=== PATIENT | male | born 1970 | race Hispanic/Latino ===

== ENCOUNTER 2018-09-25 10:39 | Emergency (ER) | payer OTHER ==
--- OUTSIDE RECORDS SUMMARY | 2018-09-25 10:42 | XMS REPORT | Continuity of Care Document ---
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 coated Substitution [facility] Allowed, ECTAB [place] 10/325 oral 1-2 tab, PO, PO Active [facility] tablet Q4-6H, PRN, [address] [facility] tab, Pain, [facility] Substitution Allowed, Maintenance gabapentin 300 mg 300 mg, 1 cap, PO Active [facility] oral capsule PO, Bedtime, [address] [facility] cap, Substitution [facility] Allowed, CAP celecoxib 200 mg 200 mg, 1 cap, PO Active [facility] oral capsule PO, BID, 84 cap, 2012 [facility] Allowed, CAP Bactroban 1 appl, Route: NASAL No [facility] NASAL, Q12H, Drug Longer [address] [facility] form: OINT, Start [facility] date: 06/10/13 9:00:00, Duration: 5 day, Stop date: 06/14/13 21:00:00 Celebrex 400 mg, 2 cap, PO No [facility] Route: PO, Drug Longer [address] [facility] form: CAP, Daily, Active [facility] Dosing Weight 107.727, kg, Start date: 06/10/13 9:00:00, Duration: 30 day, Stop date: 07/09/13 9:00:00 enoxaparin 40 mg, 0.4 mL, SUB-Q No [facility] Route: SUB-Q, Longer [address] [facility] Drug form: INJ, [facility] Q24H, Dosing Weight 107.727, kg, Start date: 06/10/13 9:00:00, Duration: 30 day, Stop date: 07/09/13 9:00:00 vancomycin (SCIP) 1 gm, 200 mL, IVPB No [facility] Route: IVPB, Drug [address] [facility] form: INJ, Q12H, [facility] Dosing Weight 107.727, kg, Start date: 06/09/13 22:00:00, Duration: 1 doses or times, Stop date: 06/09/13 22:00:00, Pharmacy to adjust dose for renal functionPharmacy to adjust dose for renal function gabapentin 300 mg 300 mg, 1 cap, PO No [facility] oral capsule Route: PO, Drug [facility] [address] [facility] form: CAP, [facility] Bedtime, Dosing Weight 107.727, kg, Start date: 06/09/13 21:00:00, Duration: 30 day, Stop date: 07/08/13 21:00:00 cefazolin (SCIP) 1 gm, Route: IVPB No [facility] + Sodium Chloride IVPB, Q8H, Dosing [facility] [address] [facility] 0.9% IV 100 mL Weight 107.727, [facility] kg, Start date: 06/09/13 18:00:00, Duration: 1 doses or times, Stop date: 06/09/13 18:00:00 Pepcid 20 mg, 1 tab, PO No [facility] Route: PO, Drug [address] [facility] form: TAB, BID, [facility] Dosing Weight 107.727, kg, Start date: 06/09/13 17:00:00, Duration: 30 day, Stop date: 07/09/13 9:00:00 Reglan 10 mg oral 10 mg, 1 tab, PO No [facility] tablet Route: PO, Drug [address] [facility] form: TAB, BID, [facility] Dosing Weight 107.727, kg, Start date: 06/09/13 17:00:00, Duration: 30 day, Stop date: 07/09/13 9:00:00 pneumococcal 0.5 ml, Route: IM No SYSTEM 23-valent vaccine IM, Drug Form: [facility] [address] [facility] INJ, ONCALL, [facility] Start date: 06/09/13 13:52:54, Stop date: 07/09/13 13:47:54 ondansetron 4 mg, 2 mL, IVP No [place] Route: IVP, Drug [address] [facility] form: INJ, ONCE, [facility] Dosing Weight 107.727, kg, PRN Nausea & Vomiting, Start date: 06/09/13 9:45:00, Duration: 1 doses or times, Stop date: Limited # of times naloxone 0.1 mg, 0.25 mL, [facility], Drug [address] [facility] form: INJ, Q2MIN, [facility] Dosing Weight 107.727, kg, PRN Narcotic Reversal, Start date: 06/09/13 9:45:00, Duration: 8 doses or times, Stop date: Limited # of times nalbuphine 2 mg, 0.2 mL, IVP No [place] Route: IVP, Drug [address] [facility] form: INJ, Q2H, [facility] Dosing Weight 107.727, kg, PRN Itching, Start date: 06/09/13 9:45:00, Duration: 5 doses or times, Stop date: Limited # of times ondansetron 4 mg, 2 mL, IVP No [facility] Route: IVP, Drug [address] [facility] form: INJ, ONCE, [facility] Dosing Weight 107.727, kg, PRN Nausea & Vomiting, Start date: 06/09/13 9:44:00 enalapril 0.625 mg, 0.5 mL, IVP No [facility] Route: IVP, Drug [address] [facility] form: INJ, Q5Min, [facility] Dosing Weight 107.727, kg, PRN Elevated BP, Start date: 06/09/13 9:44:00, Duration: 4 doses or times, Stop date: Limited # of times hydrALAZINE 5 mg, 0.25 mL, IVP No [facility] Route: IVP, Drug [address] [facility] form: INJ, Q5Min, [facility] Dosing Weight 107.727, kg, PRN Elevated BP, Start date: 06/09/13 9:44:00, Duration: 4 doses or times, Stop date: Limited # of times acetaminophen 10 1,000 mg, 100 mL, IV No [place] mg/mL intravenous Route: IV, Drug [facility] [address] [facility] solution form: INJ, ONCE, [facility] Dosing Weight 107.727, kg, PRN Pain Score 4-6, Start date: 06/09/13 9:44:00, Duration: 1 doses or times, Stop date: Limited # of times, Infuse over 15 minutes (for patient weight 50 kg or greater)Infuse over 15 minutes (for patient weight 50 kg or greater) ephedrine 5 mg, 0.1 mL, IVP No [place] Route: IVP, Drug [facility] [address] [facility] form: INJ, Q5Min, [facility] Dosing Weight 107.727, kg, PRN Low Blood Pressure, Start date: 06/09/13 9:44:00, Duration: 30 day, Stop date: 07/09/13 9:43:00 naloxone 0.04 mg, 0.1 mL, IVP No [place] Route: IVP, Drug [facility] [address] [facility] form: INJ, Q2MIN, [facility] Dosing Weight 107.727, kg, PRN Narcotic Reversal, Start date: 06/09/13 9:44:00, Duration: 8 doses or times, Stop date: Limited # of times flumazenil 0.2 mg, 2 mL, IVP No [place] Route: IVP, Drug [facility] [address] [facility] form: INJ, PRN, [facility] Dosing Weight 107.727, kg, PRN Benzodiazepine Reversal, Initial dose, Start date: 06/09/13 9:44:00, Duration: 30 day, Stop date: 07/09/13 9:43:00 Lactated Ringers 1,000 mL, Rate: IV No [place] Injection IV 50 ml/hr, Infuse [facility] [address] [facility] 1,000 mL over: 20 hr, [facility] Route: IV, Dosing Weight 107.727 kg, Total Volume: 1,000, Start date: 06/09/13 9:44:00, Duration: 30 day, Stop date: 07/09/13 9:43:00 hydromorphone 0.5 mg, 0.25 mL, IVP No [place] Route: IVP, Drug [address] [facility] form: INJ, Q5Min, [facility] Dosing Weight 107.727, kg, PRN Pain Score 7-10, Start date: 06/09/13 9:44:00, Duration: 5 doses or times, Stop date: Limited # of times morphine Sulfate 2 mg, 0.2 mL, IVP No [facility] Route: IVP, Drug [address] [facility] form: INJ, Q5Min, [facility] Dosing Weight 107.727, kg, PRN Pain Score 4-6, Start date: 06/09/13 9:44:00, Duration: 5 doses or times, Stop date: Limited # of times vancomycin (SCIP) 1 gm, 200 mL, IVPB [facility] Route: IVPB, Drug [address] [facility] form: INJ, Q12H, [facility] Dosing Weight 107.727, kg, Start date: 06/09/13 9:00:00, Duration: 1 doses or times, Stop date: 06/09/13 9:00:00, Pharmacy to adjust dose for renal functionPharmacy to adjust dose for renal function cefazolin (SCIP) 1 gm, Route: IVPB No [facility] + Sodium Chloride IVPB, Q8H, Dosing [address] [facility] 0.9% IV 100 mL Weight 107.727, [facility] kg, Start date: 06/09/13 8:00:00, Duration: 1 doses or times, Stop date: 06/09/13 8:00:00 Lactated Ringers 1,000 mL, Rate: IV No [facility] Injection IV 25 ml/hr, Infuse [facility] [address] [facility] 1,000 mL over: 40 hr, [facility] Route: IV, Dosing Weight 107.727 kg, Total Volume: 1,000, Start date: 06/09/13 7:54:00, Duration: 30 day, Stop date: 07/09/13 7:53:00 enoxaparin 40 mg, Route: SUB-Q No [facility] SUB-Q, Drug form: [facility] [address] [facility] INJ, [id number], [facility] Dosing Weight 107.727, kg, Start date: 06/09/13 7:00:00, Duration: 30 day, Stop date: 07/08/13 7:00:00 acetaminophen-hyd 1 tab, Route: PO, PO No rocodone 325 mg-5 Drug Form: TAB, [facility] Dosing Weight [facility] 107.727, kg, Q4H, PRN Pain Score 1-3, Start date: 06/09/13 6:47:00, Duration: 30 day, Stop date: 07/09/13 6:46:00 tramadol 50 mg, 1 tab, PO No Route: PO, Drug [address] [facility] form: TAB, Q6H, [facility] Dosing Weight 107.727, kg, PRN Pain Score 1-3, Start date: 06/09/13 6:47:00, Duration: 30 day, Stop date: 07/09/13 6:46:00 morphine Sulfate 2 mg, 1 mL, IVP No Route: IVP, Drug [address] [facility] form: INJ, Q3H, [facility] Dosing Weight 107.727, kg, PRN Pain Score 6-10, Start date: 06/09/13 6:47:00, Duration: 30 day, Stop date: 07/09/13 6:46:00 ketorolac 30 mg, 1 mL, IVP No Route: IVP, Drug [address] [facility] form: INJ, Q6H, [facility] Dosing Weight 107.727, kg, PRN Breakthrough Pain, Start date: 06/09/13 6:47:00, Duration: 4 day, Stop date: 06/13/13 6:46:00 ondansetron 4 mg, 2 mL, IVP No Route: IVP, Drug [address] [facility] form: INJ, Q8H, [facility] Dosing Weight 107.727, kg, PRN Nausea & Vomiting, Start date: 06/09/13 6:47:00, Duration: 30 day, Stop date: 07/09/13 6:46:00 promethazine 12.5 mg, 0.5 mL, IM No Route: IM, Drug [address] [facility] form: INJ, Q4H, [facility] Dosing Weight 107.727, kg, PRN Nausea & Vomiting, Start date: 06/09/13 6:47:00, Duration: 30 day, Stop date: 07/09/13 6:46:00 zolpidem 10 mg, 2 tab, PO No Route: PO, Drug Longer [address] [facility] form: TAB, [facility] Bedtime, Dosing Weight 107.727, kg, PRN Insomnia, Start date: 06/09/13 6:47:00, Duration: 30 day, Stop date: 07/09/13 6:46:00 docusate 100 mg, 1 cap, PO No Route: PO, Drug Longer [address] [facility] form: CAP, BID, [facility] Dosing Weight 107.727, kg, PRN Constipation, Start date: 06/09/13 6:47:00, Duration: 30 day, Stop date: 07/09/13 6:46:00 Milk of Magnesia 30 ml, Route: PO, PO No Drug Form: SUSP, Longer [address] [facility] Dosing Weight [facility] 107.727, kg, BID, PRN Constipation, Start date: 06/09/13 6:47:00, Duration: 30 day, Stop date: 07/09/13 6:46:00 Fleet Enema 230 mL, Route: WV No WV, Drug Form: [facility] [address] [facility] JUAN, Dosing [facility] Weight 107.727, kg, [id number], PRN as needed for constipation, Start date: 06/09/13 6:47:00, Duration: 30 day, Stop date: 07/09/13 6:46:00 Lactated Ringers 1,000 mL, Rate: IV No IV 1,000 mL 125 ml/hr, Infuse [facility] [address] [facility] over: 8 hr, [facility] Route: IV, Dosing Weight 107.727 kg, Total Volume: 1,000, Start date: 06/09/13 6:47:00, Duration: 30 day, Stop date: 07/09/13 6:46:00 diphenhydrAMINE 25 mg, 1 cap, PO No Route: PO, Drug [address] [facility] form: CAP, Q6H, [facility] Dosing Weight 107.727, kg, PRN Itching, Start date: 06/09/13 6:47:00, Duration: 30 day, Stop date: 07/09/13 6:46:00 Zofran 4 mg, 2 mL, IVP No Route: IVP, Drug [address] [facility] form: INJ, PRE [facility] OP, Start date: 06/09/13 6:30:00, Stop date: 06/09/13 21:00:00 Reglan 10 mg, 1 tab, PO No [facility] Route: PO, Drug [address] [facility] form: TAB, PRE [facility] OP, Start date: 06/09/13 6:30:00, Stop date: 06/09/13 21:00:00 Pepcid 20 mg, 1 tab, PO No Route: PO, Drug [address] [facility] form: TAB, PRE [facility] OP, Start date: 06/09/13 6:30:00, Stop date: 06/09/13 21:00:00 cefazolin 2 gm, 100 mL, IVPB No [facility] Route: IVPB, Drug [address] [facility] form: INJ, [facility] OP, Start date: 06/09/13 6:30:00, Stop date: 06/09/13 21:00:00 vancomycin 2 gm, 500 mL, IVPB No [facility] Route: IVPB, Drug [address] [facility] form: SOLN, [facility] OP, Start date: 06/09/13 6:30:00, Stop date: 06/09/13 21:00:00 Celebrex 200 mg 200 mg, 1 cap, PO No oral capsule PO, Daily, 90 Longer [address] [facility] cap, Substitution [facility] Allowed, CAP Tylenol Arthritis 1 tab, PO, Q4H, PO No Caplet 650 mg PRN, 40 tab, for Longer [address] [facility] oral tablet pain, [facility] Substitution Allowed, Maintenance, TAB Allergies, Adverse Reactions, Alerts Substance Category Reaction Severity Reaction Status Date Comments Source type Reported Immunizations Immunization Date Given Site Status Last Comments Source Updated pneumococcal 06/09/2013 completed [facility] 23-valent vaccine [facility] Results Order Name Results Value Reference Date Interpretation Comments Source Range CHEMISTRY CO2 26 meq/L 24 - 32 06/10 Normal [facility] CHEMISTRY Calcium Lvl 8.4 mg/dL 8.5 - 10.5 06/10 LOW [facility] CHEMISTRY Potassium 4.3 meq/L 3.5 - 5.1 06/10 Normal MH Lvl [facility] CHEMISTRY Sodium Lvl 137 meq/L 135 - 145 06/10 Normal [facility] CHEMISTRY Chloride Lvl 102 meq/L 95 - 109 06/10 Normal [facility] CHEMISTRY Creatinine 1.1 mg/dL 0.5 - 1.4 06/10 Normal MH Lvl [facility] CHEMISTRY BUN 11 mg/dL 7 - 22 06/10 Normal [facility] CHEMISTRY Glucose Lvl 110 mg/dL 70 - 99 06/10 HI 4Interpretive Data: Adult reference range values reflect the clinical guidelines of the [place] [employer]. [facility] CHEMISTRY eGFR 83 06/10 NA 2Result Comment: The eGFR is calculated using the CKD-EPI formula. In most young, healthy individuals the eGFR will be > 90 mL/min/1.73m2. The eGFR declines with age. An eGFR of 60-89 may be normal in mL/min/1.7 some populations, particularly the elderly, for whom the CKD-EPI formula has not been extensively validated. Use of the eGFR is not recommended in the following populations: [address] Individuals with unstable creatinine concentrations, including patients and those with serious co-morbid conditions. Patients with extremes in muscle mass or diet. The data above are obtained from the National Kidney Disease Education Program (NKDEP) which additionally recommends that when the eGFR is used in patients with extremes of body mass index for purposes of drug dosing, the eGFR should be multiplied by the estimated BMI. CHEMISTRY AGAP 13.3 meq/L 10.0 - 06/10 Normal MH 20.0 [facility] HEMATOLOGY Hgb 11.9 g/dL 14.0 - 06/10 LOW MH 18.0 [facility] HEMATOLOGY Hct 36.7 % 42.0 - 06/10 LOW MH 54.0 [facility] BLOOD BANK ABO/Rh O POS 06/09 Unknown RESULTS [facility] BLOOD BANK Antibody Negative 06/09 Normal RESULTS Scr [facility] (06/09/2013 08:15:00) [facility] Pelvis AP Pelvis AP EXAM: Pelvis AP 06/09 - - [facility] HISTORY: Arthritis Read by: Jae Brenner Dictated Date/time: 06/09/13 13:48 Electronically Signed by: Jae Brenner MD 06/09/13 13:48 FINAL REPORT COMPARISON: Earlier x-ray on 06/09/2013 IMPRESSION: The left hip prosthesis is in good position without evidence of hardware complication. No fracture or dislocation. The right hip prosthesis is also in good position. Pelvis AP Pelvis AP EXAM: Pelvis AP 06/09 - [facility] HISTORY: intra op Read by: Jae Brenner Dictated Date/time: 06/09/13 13:44 Electronically Signed by: Jae Brenner MD 06/09/13 13:48 FINAL REPORT COMPARISON: None. IMPRESSION: The temporary left hip prosthesis is in good position without evidence of hardware complication. The right hip prosthesis is also in good position. BACTERIAL - MRSA by PCR Negative 05/30 Normal 1Interpretive Data: Interpretive Data: The [employer] MRSA assay is a qualitative test for the direct detection of nasal colonization with methicillin-resistant Staphylococcus aureus (MRSA) to aid in the prevention and control of MRSA infections in healthcare settings. A positive result does not indicate an infection or require treatment. A negative result does not exclude colonization or infection. [facility] (05/30/2013 16:12:00) [facility] The polymerase chain reaction (PCR) assay detects a proprietary sequence indicative of the integration of the SCCmec cassette into the Staphylococcus aureus chromosome, indicating the presence of MRSA D NA. The assay utilizes FDA cleared IVD reagents. Performance characteristics have been verified by the [facility] within the [facility]. The [facility] Labor atory is authorized under the Clinical Laboratory Improvement Amendment of 1988 (CLIA-88) to perform high complexity testing. URINALYSIS UA <=1.0 0.1 - 1.0 05/30 [facility] Urobilinogen mg/dL [facility]
*NA*< City br/>(05/30 16:12:00) <sup> </sup> URINALYSIS UA Bili Negative Negative 05/[address] [facility] *NA* [facility] (05/30/2013 16:12:00) URINALYSIS UA Ketones Negative mg/dL Negative 05/[address] [facility] *NA* [facility] (05/30/2013 16:12:00) URINALYSIS UA Protein Negative mg/dL Negative 05/[address] [facility] (05/30/2013 16:12:00) [facility] URINALYSIS UA Spec Grav 1.015 <=1.030 05/30 Normal [facility] URINALYSIS UA pH 5.5 5.0 - 8.0 05/30 Normal [facility] URINALYSIS UA Turbidity Clear Clear 05/[address] [facility] (05/30/2013 16:12:00) [facility] URINALYSIS UA Glucose Negative mg/dL Negative 05/30 [facility] *NA* [facility] (05/30/2013 16:12:00) URINALYSIS UA Color Yellow Yellow 05/30 [facility] *NA* [facility] (05/30/2013 16:12:00) URINALYSIS UA WBC null 0 - 5 05/30 Normal [facility] URINALYSIS UA Mucus Few /LPF None Seen 05/30 [facility] *NA* [facility] (05/30/2013 16:12:00) URINALYSIS Micro? Not Indicated 05/30 [facility] *NA* [facility] (05/30/2013 16:12:00) URINALYSIS UA Leuk Est Negative Negative 05/[address] [facility] (05/30/2013 16:12:00) [facility] URINALYSIS UA Blood Negative Negative 05/[address] [facility] (05/30/2013 16:12:00) [facility] URINALYSIS UA Nitrite Negative Negative 05/[address] [facility] (05/30/2013 16:12:00) [facility] CHEMISTRY Total 8.4 g/dL 6.4 - 8.4 05/30 Normal [facility] CHEMISTRY AST 21 unit/L 0 - 37 05/30 Normal [facility] CHEMISTRY Bili Total 0.9 mg/dL 0.2 - 1.3 05/30 Normal [facility] CHEMISTRY Alk Phos 113 unit/L 39 - 136 05/30 Normal [facility] CHEMISTRY ALT 39 unit/L 0 - 65 05/30 Normal [facility] CHEMISTRY eGFR 106 05/30 NA 3Result Comment: The eGFR is calculated using the CKD-EPI formula. In most young, healthy individuals the eGFR will be > 90 mL/min/1.73m2. The eGFR declines with age. An eGFR of 60-89 may be normal in mL/min/1.7 some populations, particularly the elderly, for whom the CKD-EPI formula has not been extensively validated. Use of the eGFR is not recommended in the following populations: [address] Individuals with unstable creatinine concentrations, including patients and those with serious co-morbid conditions. Patients with extremes in muscle mass or diet. The data above are obtained from the National Kidney Disease Education Program (NKDEP) which additionally recommends that when the eGFR is used in patients with extremes of body mass index for purposes of drug dosing, the eGFR should be multiplied by the estimated BMI. CHEMISTRY Calcium Lvl 9.2 mg/dL 8.5 - 10.5 05/30 Normal [facility] CHEMISTRY CO2 26 meq/L 24 - 32 05/30 Normal [facility] CHEMISTRY Albumin Lvl 4.1 g/dL 3.5 - 5.0 05/30 Normal [facility] CHEMISTRY Chloride Lvl 104 meq/L 95 - 109 05/30 Normal [facility] CHEMISTRY Glucose Lvl 87 mg/dL 70 - 99 05/30 Normal 5Interpretive Data: Adult reference range values reflect the clinical guidelines of the [place] [employer]. [facility] CHEMISTRY Potassium 3.7 meq/L 3.5 - 5.1 05/30 Normal [facility] CHEMISTRY Sodium Lvl 139 meq/L 135 - 145 05/30 Normal [facility] CHEMISTRY Creatinine 0.9 mg/dL 0.5 - 1.4 05/30 Normal Lvl [facility] CHEMISTRY BUN 11 mg/dL 7 - 22 05/30 Normal [facility] CHEMISTRY A/G Ratio 1.0 0.7 - 1.6 05/30 Normal [facility] CHEMISTRY Globulin 4.3 g/dL 2.0 - 4.0 05/30 HI [facility] CHEMISTRY B/C Ratio 12 6 - 25 05/30 Normal [facility] CHEMISTRY AGAP 12.7 meq/L 10.0 - 07 Normal 20.0 /2012 [facility] HEMATOLOGY PTT 32.4 s 22.9 - 07/ Normal 7Interpretive 35.8 /2013 Data: Heparin [facility] Range: 57 - 92 Seconds HEMATOLOGY PT 12.4 s 12.0 - 07 Normal 14.7 /[facility] INR 0.90 0.85 - 07/ Normal 6Interpretive Data: RECOMMENDED RANGES FOR PROTIME INR: 1.17 2.0-3.0 for most medical and surgical thromboembolic states. [facility] 2.5-3.5 for artificial heart valves and recurrent embolism. [facility] INR SHOULD BE USED ONLY FOR PATIENTS ON STABLE ANTICOAGULANT THERAPY. HEMATOLOGY Platelet 327 K/CMM 133 - 450 07/ Normal /2012 [facility] HEMATOLOGY MCHC 32.4 g/dL 32.0 - 07/ Normal 36.0 /2012 [facility] HEMATOLOGY RDW 14.2 % 11.5 - 07/ Normal 14.5 /2012 [facility] MCH 29.7 pg 27.0 - 07/ Normal 31.0 /2012 [facility] Hct 45.0 % 42.0 - 07/ Normal 54.0 /2012 [facility] HEMATOLOGY MCV 91.7 fL 80.0 - 07 Normal 94.0 /2012 [facility] HEMATOLOGY Hgb 14.6 g/dL 14.0 - 07 Normal 18.0 /2012 [facility] HEMATOLOGY RBC 4.91 M/CMM 4.70 - 07/ Normal MH 6.10 /2012 [facility] HEMATOLOGY WBC 9.9 K/CMM 3.7 - 10.4 07/ Normal /2012 [facility] HEMATOLOGY MPV 10.7 fL 7.4 - 10.4 07/ HI /2012 [facility] HEMATOLOGY Basophils 0.3 % 0.0 - 1.0 07/ Normal /2012 [facility] HEMATOLOGY Segs-Bands # 7.0 K/CMM 1.5 - 8.1 07/ Normal /2012 [facility] HEMATOLOGY Eosinophils 3.0 % 0.0 - 4.0 07/ Normal /2012 [facility] HEMATOLOGY Segs 71.2 % 45.0 - 07/ Normal 75.0 /2012 [facility] HEMATOLOGY Lymphocytes 21.0 % 20.0 - 07/ Normal 40.0 /2012 [facility] HEMATOLOGY Monocytes 4.5 % 2.0 - 12.0 07/ Normal /2012 [facility] HEMATOLOGY Lymphocytes 2.1 K/CMM 1.0 - 5.5 07/ Normal # /2012 [facility] HEMATOLOGY Basophils # 0.0 K/CMM 0.0 - 0.2 07/ Normal [facility] HEMATOLOGY Eosinophils 0.3 K/CMM 0.0 - 0.5 05/30 Normal [facility] [facility] HEMATOLOGY Monocytes # 0.4 K/CMM 0.0 - 0.8 05/30 Normal [facility] IMMUNOLOGY Hep C Ab Negative Negative 05/30 NA [facility]* [facility] (05/30/2013 16:11:00) IMMUNOLOGY HIV 1/2 Ab Negative Negative 05/[address] [facility] *NA* [facility] (05/30/2013 16:11:00) Chest 2 Chest 2 Chest 2 views, 05/30/201305/30 - views views /2012 - [facility] Clinical: Cough Read by: Hugh Ram Dictated Date/time: 05/30/13 17:49 Electronically Signed by: Hugh Ram MD 05/30/13 17:49 FINAL REPORT Comparison: No previous exam. The heart, mediastinum, hilar regions and pulmonary vasculature appear within normal limits. The lungs are free of active disease. Remote right clavicular fracture is present. The bony thorax is intact. Impression: No evidence to suggest active cardiopulmonary disease. Remote right clavicular fracture. Vital Signs Vital Sign Value Date Comments Source Diastolic (mm Hg) 72 06/10/2013 [facility] Systolic (mm Hg) 124 06/10/2013 [facility] Heart Rate 99 06/10/2013 [facility] Heart Rate 106 06/10/2013 [facility] Temperature Oral (F) 98.8 F 06/10/2013 [facility] Diastolic (mm Hg) 77 06/10/2013 [facility] Systolic (mm Hg) 123 06/10/2013 [facility] Respitory Rate 16 06/10/2013 [facility] Systolic (mm Hg) 125 06/10/2013 [facility] Diastolic (mm Hg) 72 06/10/2013 [facility] Respitory Rate 18 06/10/2013 [facility] Heart Rate 98 06/10/2013 [facility] Temperature Oral (F) 99.5 F 06/10/2013 [facility] Temperature Oral (F) 98.7 F 06/10/2013 [facility] Respitory Rate 18 06/10/2013 [facility] Height 167.64 cm 05/30/2013 [facility] Weight 107.727 05/30/2013 [facility] Encounters Location Location Encounter Encounter Reason Attending ADM DC Status Source Details Type Number For Provider Date Date Visit Inpatient [id number] LEFT MAI 06/09 06/10 Active [facility] HIP FREEDHAND /2012 [facility] PAIN,71 [facility] 9.45,AV ASCULAR NECROSI S,733.4 2,16178 Procedures Procedure Code Date Perfomer Comments Source Hip replacement 06/09/2013 1left hip [facility] <sup>1</sup> [facility] THR - Total hip [id number] 11/30/2012 [facility]
--- OUTSIDE RECORDS SUMMARY | 2018-09-25 10:43 | XMS REPORT | CCD ---
:[address] [facility] Care Team Providers Name Role Phone Terell Alberto Referring Provider Allergies, Adverse Reactions, Alerts Substance Reaction Status NKDA Active Problem List Condition Effective Dates Status Asthma Resolved AVN - Avascular necrosis of bone Active Medications Medication Instructions Start Date End Date Status Bactroban 1 appl, Route: NASAL, 06/10/2013 06/10/2013 Discontinued Q12H, Drug form: OINT, Start date: 06/10/13 9:00:00, Duration: 5 day, Stop date: 06/14/13 21:00:00 Lactated Ringers Injection 1,000 mL, Rate: 25 06/09/2013 06/09/2013 Discontinued IV 1,000 mL ml/hr, Infuse over: 40 hr, Route: IV, Dosing Weight 107.727 kg, Total Volume: 1,000, Start date: 06/09/13 7:54:00, Duration: 30 day, Stop date: 07/09/13 7:53:00 Zofran 4 mg, 2 mL, Route: IVP, 06/09/2013 06/09/2013 Completed Drug form: INJ, PRE OP, Start date: 06/09/13 6:30:00, Stop date: 06/09/13 21:00:00 Reglan 10 mg, 1 tab, Route: PO, 06/09/2013 06/09/2013 Completed Drug form: TAB, PRE OP, Start date: 06/09/13 6:30:00, Stop date: 06/09/13 21:00:00 aspirin 325 mg tablet, 325 mg, 1 tab, PO, Q12H, 06/10/2013 Ordered enteric coated 90 tab, Substitution Allowed, ECTAB [place] 10/325 oral tablet 1-2 tab, PO, Q4-6H, PRN, 06/10/2013 06/15/2013 Ordered 30 tab, Pain, Substitution Allowed, Maintenance gabapentin 300 mg oral 300 mg, 1 cap, PO, 06/10/2013 Ordered capsule Bedtime, 21 cap, Substitution Allowed, CAP Celebrex 200 mg oral 200 mg, 1 cap, PO, 05/30/2013 06/10/2013 Discontinued capsule Daily, 90 cap, Substitution Allowed, CAP Tylenol Arthritis Caplet 1 tab, PO, Q4H, PRN, 40 05/30/2013 06/10/2013 Discontinued 650 mg oral tablet tab, for pain, Substitution Allowed, Maintenance, TAB Pepcid 20 mg, 1 tab, Route: PO, 06/09/2013 06/09/2013 Completed Drug form: TAB, PRE OP, Start date: 06/09/13 6:30:00, Stop date: 06/09/13 21:00:00 cefazolin 2 gm, 100 mL, Route: 06/09/2013 06/09/2013 Completed IVPB, Drug form: INJ, PRE OP, Start date: 06/09/13 6:30:00, Stop date: 06/09/13 21:00:00 celecoxib 200 mg oral 200 mg, 1 cap, PO, BID, 06/10/2013 Ordered capsule 84 cap, Substitution Allowed, CAP pneumococcal 23-valent 0.5 ml, Route: IM, Drug 06/09/2013 06/09/2013 Completed vaccine Form: INJ, ONCALL, Start date: 06/09/13 13:52:54, Stop date: 07/09/13 13:47:54 ondansetron 4 mg, 2 mL, Route: IVP, 06/09/2013 06/09/2013 Discontinued Drug form: INJ, ONCE, Dosing Weight 107.727, kg, PRN Nausea & Vomiting, Start date: 06/09/13 9:44:00 enalapril 0.625 mg, 0.5 mL, Route: 06/09/2013 06/09/2013 Discontinued IVP, Drug form: INJ, Q5Min, Dosing Weight 107.727, kg, PRN Elevated BP, Start date: 06/09/13 9:44:00, Duration: 4 doses or times, Stop date: Limited # of times hydrALAZINE 5 mg, 0.25 mL, Route: 06/09/2013 06/09/2013 Discontinued IVP, Drug form: INJ, Q5Min, Dosing Weight 107.727, kg, PRN Elevated BP, Start date: 06/09/13 9:44:00, Duration: 4 doses or times, Stop date: Limited # of times acetaminophen 10 mg/mL 1,000 mg, 100 mL, Route: IV, Drug form: INJ, ONCE, Dosing Weight 107.727, kg, PRN Pain Score 4-6, Start date: 06/09/13 9:44:00, Duration: 1 doses or times, Stop date: Limited # of times, Infuse over 15 minutes (for patient weight 50 kg or greater) 06/09/2013 06/09/2013 Discontinued intravenous solution Infuse over 15 minutes (for patient weight 50 kg or greater) ephedrine 5 mg, 0.1 mL, Route: 06/09/2013 06/09/2013 Discontinued IVP, Drug form: INJ, Q5Min, Dosing Weight 107.727, kg, PRN Low Blood Pressure, Start date: 06/09/13 9:44:00, Duration: 30 day, Stop date: 07/09/13 9:43:00 naloxone 0.04 mg, 0.1 mL, Route: 06/09/2013 06/09/2013 Discontinued IVP, Drug form: INJ, Q2MIN, Dosing Weight 107.727, kg, PRN Narcotic Reversal, Start date: 06/09/13 9:44:00, Duration: 8 doses or times, Stop date: Limited # of times flumazenil 0.2 mg, 2 mL, Route: 06/09/2013 06/09/2013 Discontinued IVP, Drug form: INJ, PRN, Dosing Weight 107.727, kg, PRN Benzodiazepine Reversal, Initial dose, Start date: 06/09/13 9:44:00, Duration: 30 day, Stop date: 07/09/13 9:43:00 Lactated Ringers Injection 1,000 mL, Rate: 50 06/09/2013 06/09/2013 Discontinued IV 1,000 mL ml/hr, Infuse over: 20 hr, Route: IV, Dosing Weight 107.727 kg, Total Volume: 1,000, Start date: 06/09/13 9:44:00, Duration: 30 day, Stop date: 07/09/13 9:43:00 hydromorphone 0.5 mg, 0.25 mL, Route: 06/09/2013 06/09/2013 Discontinued IVP, Drug form: INJ, Q5Min, Dosing Weight 107.727, kg, PRN Pain Score 7-10, Start date: 06/09/13 9:44:00, Duration: 5 doses or times, Stop date: Limited # of times morphine Sulfate 2 mg, 0.2 mL, Route: 06/09/2013 06/09/2013 Discontinued IVP, Drug form: INJ, Q5Min, Dosing Weight 107.727, kg, PRN Pain Score 4-6, Start date: 06/09/13 9:44:00, Duration: 5 doses or times, Stop date: Limited # of times ondansetron 4 mg, 2 mL, Route: IVP, 06/09/2013 06/10/2013 Discontinued Drug form: INJ, ONCE, Dosing Weight 107.727, kg, PRN Nausea & Vomiting, Start date: 06/09/13 9:45:00, Duration: 1 doses or times, Stop date: Limited # of times naloxone 0.1 mg, 0.25 mL, Route: 06/09/2013 06/10/2013 Discontinued IVP, Drug form: INJ, Q2MIN, Dosing Weight 107.727, kg, PRN Narcotic Reversal, Start date: 06/09/13 9:45:00, Duration: 8 doses or times, Stop date: Limited # of times nalbuphine 2 mg, 0.2 mL, Route: 06/09/2013 06/10/2013 Discontinued IVP, Drug form: INJ, Q2H, Dosing Weight 107.727, kg, PRN Itching, Start date: 06/09/13 9:45:00, Duration: 5 doses or times, Stop date: Limited # of times enoxaparin 40 mg, Route: SUB-Q, 06/09/2013 06/09/2013 Deleted Drug form: INJ, [id number], Dosing Weight 107.727, kg, Start date: 06/09/13 7:00:00, Duration: 30 day, Stop date: 07/08/13 7:00:00 Pepcid 20 mg, 1 tab, Route: PO, 06/09/2013 06/10/2013 Discontinued Drug form: TAB, BID, Dosing Weight 107.727, kg, Start date: 06/09/13 17:00:00, Duration: 30 day, Stop date: 07/09/13 9:00:00 Reglan 10 mg oral tablet 10 mg, 1 tab, Route: PO, 06/09/2013 06/10/2013 Discontinued Drug form: TAB, BID, Dosing Weight 107.727, kg, Start date: 06/09/13 17:00:00, Duration: 30 day, Stop date: 07/09/13 9:00:00 Celebrex 400 mg, 2 cap, Route: 06/10/2013 06/10/2013 Discontinued PO, Drug form: CAP, Daily, Dosing Weight 107.727, kg, Start date: 06/10/13 9:00:00, Duration: 30 day, Stop date: 07/09/13 9:00:00 gabapentin 300 mg oral 300 mg, 1 cap, Route: 06/09/2013 06/10/2013 Discontinued capsule PO, Drug form: CAP, Bedtime, Dosing Weight 107.727, kg, Start date: 06/09/13 21:00:00, Duration: 30 day, Stop date: 07/08/13 21:00:00 cefazolin (SCIP) + Sodium 1 gm, Route: IVPB, Q8H, 06/09/2013 06/09/2013 Deleted Chloride 0.9% IV 100 mL Dosing Weight 107.727, kg, Start date: 06/09/13 8:00:00, Duration: 1 doses or times, Stop date: 06/09/13 8:00:00 vancomycin (SCIP) 1 gm, 200 mL, Route: IVPB, Drug form: INJ, Q12H, Dosing Weight 107.727, kg, Start date: 06/09/13 9:00:00, Duration: 1 doses or times, Stop date: 06/09/13 9:00:00, Pharmacy to adjust dose for renal function 201206/09/2013 Deleted Pharmacy to adjust dose for renal function acetaminophen-hydrocodone 1 tab, Route: PO, Drug 06/09/2013 06/10/2013 Discontinued 325 mg-5 mg oral tablet Form: TAB, Dosing Weight 107.727, kg, Q4H, PRN Pain Score 1-3, Start date: 06/09/13 6:47:00, Duration: 30 day, Stop date: 07/09/13 6:46:00 acetaminophen-hydrocodone 2 tab, Route: PO, Drug 06/09/2013 06/10/2013 Discontinued 325 mg-5 mg oral tablet Form: TAB, Dosing Weight 107.727, kg, Q4H, PRN Pain Score 4-6, Start date: 06/09/13 6:47:00, Duration: 30 day, Stop date: 07/09/13 6:46:00 tramadol 50 mg, 1 tab, Route: PO, 06/09/2013 06/10/2013 Discontinued Drug form: TAB, Q6H, Dosing Weight 107.727, kg, PRN Pain Score 1-3, Start date: 06/09/13 6:47:00, Duration: 30 day, Stop date: 07/09/13 6:46:00 morphine Sulfate 2 mg, 1 mL, Route: IVP, 06/09/2013 06/10/2013 Discontinued Drug form: INJ, Q3H, Dosing Weight 107.727, kg, PRN Pain Score 6-10, Start date: 06/09/13 6:47:00, Duration: 30 day, Stop date: 07/09/13 6:46:00 ketorolac 30 mg, 1 mL, Route: IVP, 06/09/2013 06/10/2013 Discontinued Drug form: INJ, Q6H, Dosing Weight 107.727, kg, PRN Breakthrough Pain, Start date: 06/09/13 6:47:00, Duration: 4 day, Stop date: 06/13/13 6:46:00 ondansetron 4 mg, 2 mL, Route: IVP, 06/09/2013 06/10/2013 Discontinued Drug form: INJ, Q8H, Dosing Weight 107.727, kg, PRN Nausea & Vomiting, Start date: 06/09/13 6:47:00, Duration: 30 day, Stop date: 07/09/13 6:46:00 promethazine 12.5 mg, 0.5 mL, Route: 06/09/2013 06/10/2013 Discontinued IM, Drug form: INJ, Q4H, Dosing Weight 107.727, kg, PRN Nausea & Vomiting, Start date: 06/09/13 6:47:00, Duration: 30 day, Stop date: 07/09/13 6:46:00 zolpidem 10 mg, 2 tab, Route: PO, 06/09/2013 06/10/2013 Discontinued Drug form: TAB, Bedtime, Dosing Weight 107.727, kg, PRN Insomnia, Start date: 06/09/13 6:47:00, Duration: 30 day, Stop date: 07/09/13 6:46:00 docusate 100 mg, 1 cap, Route: 06/09/2013 06/10/2013 Discontinued PO, Drug form: CAP, BID, Dosing Weight 107.727, kg, PRN Constipation, Start date: 06/09/13 6:47:00, Duration: 30 day, Stop date: 07/09/13 6:46:00 Milk of Magnesia 30 ml, Route: PO, Drug 06/09/2013 06/10/2013 Discontinued Form: SUSP, Dosing Weight 107.727, kg, BID, PRN Constipation, Start date: 06/09/13 6:47:00, Duration: 30 day, Stop date: 07/09/13 6:46:00 Fleet Enema 230 mL, Route: UT, Drug 06/09/2013 06/10/2013 Discontinued Form: JUAN, Dosing Weight 107.727, kg, [id number], PRN as needed for constipation, Start date: 06/09/13 6:47:00, Duration: 30 day, Stop date: 07/09/13 6:46:00 Lactated Ringers IV 1,000 1,000 mL, Rate: 125 06/09/2013 06/10/2013 Discontinued mL ml/hr, Infuse over: 8 hr, Route: IV, Dosing Weight 107.727 kg, Total Volume: 1,000, Start date: 06/09/13 6:47:00, Duration: 30 day, Stop date: 07/09/13 6:46:00 enoxaparin 40 mg, 0.4 mL, Route: 06/10/2013 06/10/2013 Discontinued SUB-Q, Drug form: INJ, Q24H, Dosing Weight 107.727, kg, Start date: 06/10/13 9:00:00, Duration: 30 day, Stop date: 07/09/13 9:00:00 diphenhydrAMINE 25 mg, 1 cap, Route: PO, 06/09/2013 06/10/2013 Discontinued Drug form: CAP, Q6H, Dosing Weight 107.727, kg, PRN Itching, Start date: 06/09/13 6:47:00, Duration: 30 day, Stop date: 07/09/13 6:46:00 vancomycin (SCIP) 1 gm, 200 mL, Route: IVPB, Drug form: INJ, Q12H, Dosing Weight 107.727, kg, Start date: 06/09/13 22:00:00, Duration: 1 doses or times, Stop date: 06/09/13 22:00:00, Pharmacy to adjust dose for renal function 201206/09/2013 Completed Pharmacy to adjust dose for renal function cefazolin (SCIP) + Sodium 1 gm, Route: IVPB, Q8H, 06/09/2013 06/09/2013 Completed Chloride 0.9% IV 100 mL Dosing Weight 107.727, kg, Start date: 06/09/13 18:00:00, Duration: 1 doses or times, Stop date: 06/09/13 18:00:00 vancomycin 2 gm, 500 mL, Route: 06/09/2013 06/09/2013 Completed IVPB, Drug form: SOLN, PRE OP, Start date: 06/09/13 6:30:00, Stop date: 06/09/13 21:00:00 Immunizations Vaccine Date Status pneumococcal 23-valent vaccine 06/09/2013 Auth (Verified) Vital Signs Most recent to oldest 1 2 3 [Reference Range]: Height 167.64 cm (05/30/2013 16:09:00) Temperature Oral 98.8 DegF 99.5 DegF 98.7 DegF [96.4-99.1 DegF] (06/10/2013 08:00:00) *HI* (06/10/2013 00:00:00) (06/10/2013 03:59:00) Systolic Blood Pressure 124 mmHg 123 mmHg 125 mmHg [90-140 mmHg] (06/10/2013 12:00:00) (06/10/2013 08:00:00) (06/10/2013 03:59: 00) Diastolic Blood Pressure 72 mmHg 77 mmHg 72 mmHg [60-90 mmHg] (06/10/2013 12:00:00) (06/10/2013 08:00:00) (06/10/2013 03:59: 00) Respiratory Rate [14-20 16 BRMIN 18 BRMIN 18 BRMIN BRMIN] (06/10/2013 08:00:00) (06/10/2013 03:59:00) (06/10/2013 00:00:00) Peripheral Pulse Rate 99 bpm 106 bpm 98 bpm [60-100 bpm] (06/10/2013 12:00:00) *HI* (06/10/2013 03:59:00) (06/10/2013 08:00:00) Weight 107.727 kg (05/30/2013 16:09:00) Results BACTERIAL - SEROLOGY Most recent to oldest [Reference Range]: 1 2 MRSA by PCR Negative 1 (05/30/2013 16:12:00) 1Interpretive Data: Interpretive Data: The [employer] Light[employer] MRSA assay is a qualitative test for thedirect detection of nasal colonization with methicillin- resistant Staphylococcus aureus (MRSA) to aid in the prevention and control of MRSA infections in healthcare settings. A positive result does notindicate an infection or require treatment. A negative result does not exclude colonization or infection. The polymerase chain reaction (PCR) assay detects a proprietary sequence indicative of the integration of the SCCmec cassette into the Staphylococcus aureus chromosome, indicating the presence of MRSA DNA. The assay utilizes FDA cleared IVD reagents. Performance characteristics have been verified by the [facility] within the [facility]. The [facility] is authorized under the Clinical Laboratory Improvement Amendment of 1988 (CLIA-88) to performhigh complexity testing.URINALYSIS Most recent to oldest [Reference Range]: 1 2 UA Turbidity [Clear] Clear (05/30/2013 16:12:00) UA Color [Yellow] Yellow *NA* (05/30/2013 16:12:00) UA pH [5.0-8.0] 5.5 (05/30/2013 16:12:00) UA Spec Grav [<=1.030] 1.015 (05/30/2013 16:12:00) UA Glucose [Negative mg/dL] Negative mg/dL *NA* (05/30/2013 16:12:00) UA Blood [Negative] Negative (05/30/2013 16:12:00) UA Ketones [Negative mg/dL] Negative mg/dL *NA* (05/30/2013 16:12:00) UA Protein [Negative mg/dL] Negative mg/dL (05/30/2013 16:12:00) UA Urobilinogen [0.1-1.0 mg/dL] <=1.0 mg/dL *NA* (05/30/2013 16:12:00) UA Bili [Negative] Negative *NA* (05/30/2013 16:12:00) UA Leuk Est [Negative] Negative (05/30/2013 16:12:00) UA Nitrite [Negative] Negative (05/30/2013 16:12:00) UA WBC [0-5 /HPF] <1 /HPF (05/30/2013 16:12:00) UA Mucus [None Seen /LPF] Few /LPF *NA* (05/30/2013 16:12:00) Micro? Not Indicated *NA* (05/30/2013 16:12:00) BLOOD BANK RESULTS Most recent to oldest [Reference Range]: 1 2 ABO/Rh O POS *Unknown* (06/09/2013 08:15:00) Antibody Scrn Negative (06/09/2013 08:15:00) CHEMISTRY Most recent to oldest [Reference 1 2 Range]: Sodium Lvl [135-145 mEq/L] 137 mEq/L 139 mEq/L (06/10/2013 05:59:00) (05/30/2013 16:11:00) Potassium Lvl [3.5-5.1 mEq/L] 4.3 mEq/L 3.7 mEq/L (06/10/2013 05:59:00) (05/30/2013 16:11:00) Chloride Lvl [95-109 mEq/L] 102 mEq/L 104 mEq/L (06/10/2013 05:59:00) (05/30/2013 16:11:00) CO2 [24-32 mEq/L] 26 mEq/L 26 mEq/L (06/10/2013 05:59:00) (05/30/2013 16:11:00) AGAP [10.0-20.0 mEq/L] 13.3 mEq/L 12.7 mEq/L (06/10/2013 05:59:00) (05/30/2013 16:11:00) Creatinine Lvl [0.5-1.4 mg/dL] 1.1 mg/dL 0.9 mg/dL (06/10/2013 05:59:00) (05/30/2013 16:11:00) eGFR 83 mL/min/1.73m2 2 106 mL/min/1.73m2 3 *NA* *NA* (06/10/2013 05:59:00) (05/30/2013 16:11:00) BUN [7-22 mg/dL] 11 mg/dL 11 mg/dL (06/10/2013 05:59:00) (05/30/2013 16:11:00) B/C Ratio [6-25] 12 (05/30/2013 16:11:00) Glucose Lvl [70-99 mg/dL] 110 mg/dL 4 87 mg/dL 5 *HI* (05/30/2013 16:11:00) (06/10/2013 05:59:00) Total Protein [6.4-8.4 g/dL] 8.4 g/dL (05/30/2013 16:11:00) Albumin Lvl [3.5-5.0 g/dL] 4.1 g/dL (05/30/2013 16:11:00) Globulin [2.0-4.0 g/dL] 4.3 g/dL *HI* (05/30/2013 16:11:00) A/G Ratio [0.7-1.6] 1.0 (05/30/2013 16:11:00) Calcium Lvl [8.5-10.5 mg/dL] 8.4 mg/dL 9.2 mg/dL *LOW* (05/30/2013 16:11:00) (06/10/2013 05:59:00) ALT [0-65 unit/L] 39 unit/L (05/30/2013 16:11:00) AST [0-37 unit/L] 21 unit/L (05/30/2013 16:11:00) Alk Phos [39-136 unit/L] 113 unit/L (05/30/2013 16:11:00) Bili Total [0.2-1.3 mg/dL] 0.9 mg/dL (05/30/2013 16:11:00) 2Result Comment: The eGFR is calculated using the CKD-EPI formula. In most young , healthy individualsthe eGFR will be >90 mL/min/1.73m2. The eGFR declines with age. An eGFR of 60-89 may be normal in some populations, particularly the elderly, for whom the CKD-EPI formula has not been extensively validated. Use of the eGFR is not recommended in the following populations: Individuals with unstable creatinine concentrations, including patients and those with serious co-morbid conditions. Patients with extremes in muscle mass or diet. The data above are obtained from the National Kidney Disease Education Program ( NKDEP) which additionally recommends that when the eGFR is used in patients with extremes of body mass index for purposesof drug dosing, the eGFR should be multiplied by the estimated BMI.3Result Comment: The eGFR is calculated using the CKD-EPI formula. In most young, healthy individualsthe eGFR will be >90 mL/ min/1.73m2. The eGFR declines with age. An eGFR of 60-89 may be normal in some populations, particularly the elderly, for whom the CKD-EPI formula has not been extensively validated. Use of the eGFR is not recommended in the following populations: Individuals with unstable creatinine concentrations, including patients and those with serious co-morbid conditions. Patients with extremes in muscle mass or diet. The data above are obtained from the National Kidney Disease Education Program ( NKDEP) which additionally recommends that when the eGFR is used in patients with extremes of body mass index for purposesof drug dosing, the eGFR should be multiplied by the estimated BMI.4Interpretive Data: Adult reference range values reflect the clinical guidelines of the [place] [employer].5Interpretive Data: Adult reference range values reflect the clinical guidelines of the [place] [employer].HEMATOLOGY Most recent to oldest [Reference 1 2 Range]: WBC [3.7-10.4 K/CMM] 9.9 K/CMM (05/30/2013 16:11:00) RBC [4.70-6.10 M/CMM] 4.91 M/CMM (05/30/2013 16:11:00) Hgb [14.0-18.0 g/dL] 11.9 g/dL 14.6 g/dL *LOW* (05/30/2013 16:11:00) (06/10/2013 05:59:00) Hct [42.0-54.0 %] 36.7 % 45.0 % *LOW* (05/30/2013 16:11:00) (06/10/2013 05:59:00) MCV [80.0-94.0 fL] 91.7 fL (05/30/2013 16:11:00) MCH [27.0-31.0 pg] 29.7 pg (05/30/2013 16:11:00) MCHC [32.0-36.0 g/dL] 32.4 g/dL (05/30/2013 16:11:00) RDW [11.5-14.5 %] 14.2 % (05/30/2013 16:11:00) Platelet [133-450 K/CMM] 327 K/CMM (05/30/2013 16:11:00) MPV [7.4-10.4 fL] 10.7 fL *HI* (05/30/2013 16:11:00) Segs [45.0-75.0 %] 71.2 % (05/30/2013 16:11:00) Lymphocytes [20.0-40.0 %] 21.0 % (05/30/2013 16:11:00) Monocytes [2.0-12.0 %] 4.5 % (05/30/2013 16:11:00) Eosinophils [0.0-4.0 %] 3.0 % (05/30/2013 16:11:00) Basophils [0.0-1.0 %] 0.3 % (05/30/2013 16:11:00) Segs-Bands # [1.5-8.1 K/CMM] 7.0 K/CMM (05/30/2013 16:11:00) Lymphocytes # [1.0-5.5 K/CMM] 2.1 K/CMM (05/30/2013 16:11:00) Monocytes # [0.0-0.8 K/CMM] 0.4 K/CMM (05/30/2013 16:11:00) Eosinophils # [0.0-0.5 K/CMM] 0.3 K/CMM (05/30/2013 16:11:00) Basophils # [0.0-0.2 K/CMM] 0.0 K/CMM (05/30/2013 16:11:00) PT [12.0-14.7 seconds] 12.4 seconds (05/30/2013 16:11:00) INR [0.85-1.17] 0.90 6 (05/30/2013 16:11:00) PTT [22.9-35.8 seconds] 32.4 seconds 7 (05/30/2013 16:11:00) 6Interpretive Data: RECOMMENDED RANGES FOR PROTIME INR: 2.0-3.0 for most medical and surgical thromboembolic states. 2.5-3.5 for artificial heart valves and recurrent embolism. INR SHOULD BE USED ONLY FOR PATIENTS ON STABLE ANTICOAGULANT THERAPY.7Interpretive Data: Heparin Therapeutic Range: 57 - 92 SecondsIMMUNOLOGY Most recent to oldest [Reference Range]: 1 2 HIV 1/2 Ab [Negative] Negative *NA* (05/30/2013 16:11:00) Hep C Ab [Negative] Negative *NA* (05/30/2013 16:11:00) Procedures Procedures Date Related Diagnosis Hip replacement 1 06/09/2013 00:00:00 THR - Total hip replacement 2012 1left hip
--- NOTE | 2018-09-25 12:38 | ER ---
Nurse's Notes [facility] Name: Randal Hobbs Age: 47 yrs Sex: Male : 1970 Arrival Date: 09/25/2018 Time: 10:43 Bed Treatment Private MD: Dakota Russ H Diagnosis: Presentation: 09/25 11:26 Presenting complaint: Patient states: Left knee pain for 4 days, no known injury or aj trauma. Ambulated with use of a cane to triage. Transition of care: patient was not received from another setting of care. Onset of symptoms was September 21, 2018. Risk Assessment: Do you want to hurt yourself or someone else? Patient reports no desire to harm self or others. Initial Sepsis Screen: Does the patient meet any 2 criteria? No. Patient's initial sepsis screen is negative. Does the patient have a suspected source of infection? No. Patient's initial sepsis screen is negative. Care prior to arrival: None. 11:26 Method Of Arrival: Ambulatory 11:26 Acuity: BG 4 aj Triage Assessment: 11:28 General: Appears in no apparent distress. comfortable, Behavior is calm, cooperative, aj appropriate for age. Pain: Complains of pain in left knee. Neuro: Level of Consciousness is awake, alert, obeys commands, Oriented to person, place, time, situation, Appropriate for age. Respiratory: Airway is patent Respiratory effort is even, unlabored, Respiratory pattern is regular, symmetrical. Derm: Skin is intact, is healthy with good turgor, Skin is pink, warm \T\ dry. normal. Musculoskeletal: Reports pain in left knee. Historical: - Allergies: 11:28 No Known Allergies; aj - Home Meds: 11: None [Active]; aj - PMHx: 11:28 None; aj - PSHx: 11:28 hip replacement; Gastric Sleeve; Sinus; aj - Immunization history:: Adult Immunizations up to date. - Social history:: Smoking status: Patient/guardian denies using tobacco. - Ebola Screening: : Patient negative for fever greater than or equal to 101.5 degrees Fahrenheit, and additional compatible Ebola Virus Disease symptoms Patient denies exposure to infectious person Patient denies travel to an Ebola-affected area in the 21 days before illness onset No symptoms or risks identified at this time. Vital Signs: 11:28 BP 156 / 103; Pulse 82; Resp 20; Temp 98.3(O); Pulse Ox 98% on R/A; Weight 90.72 kg; aj Height 5 ft. 6 in. (167.64 cm); 11:28 Body Mass Index 32.28 (90.72 kg, 167.64 cm) aj ED Course: 10:43 Patient arrived in ED. mr 10:44 Dakota Russ DO is Private Physician. mr 11:27 Triage completed. aj 11:28 Arm band placed on left wrist. Patient placed in waiting room, Patient notified of wait aj time. X-ray ordered. 12:00 Radiology exam delayed due to called for pt in ER lobby, no anwser for xray. jr1 12:14 Patient's name was called from ER lobby. No response. aj 12:22 Julius Pemberton PA is PHCP. jr8 12:22 Josef Mooney MD is Attending Physician. jr8 Administered Medications: No medications were administered Outcome: 12:38 Patient left the ED. aa5 12:40 [address] [facility] Signatures: Catarina Cox, RN RN junito SharpSalma swainMariel jr1 Lani Cardenas, BENJY RN aaJulius Antonio PA PA [address] [facility]
[2018-09-25 12:42] VITALS: BP 156/103; TEMP 98.3; O2SAT 98
== END 2018-09-25 12:40 | disposition left against medical advice (07) ==
LOC: ER 10:39
DX: Z53.21 Procedure and treatment not carried out due to patient leaving prior to being seen by health care provider (principal)
CPT/HCPCS: 99281

== ENCOUNTER 2019-08-29 22:57 | Emergency (ER) | payer OTHER ==
[2019-08-29] MEDS ORDERED: LIDOCAINE 1% W/EPI 1:100,000 MDV 20 ML VIAL ONE (23:17)
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
[2019-08-29] MEDS ORDERED: CEFAZOLIN SODIUM 1 GM/VIAL ONE (23:47)
[2019-08-29] MEDS ORDERED: TETANUS & DIPHTHERIA TOX,ADULT 0.5 ML VIAL ONE (23:47)
[2019-08-30 01:07] VITALS: TEMP 98.3
[2019-08-30 01:08] VITALS: BP 124/89; O2SAT 99
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
== END 2019-08-30 00:18 | disposition home or self-care (01) ==
LOC: ER 22:57
PROC: 0JQD0ZZ Repair Right Upper Arm Subcutaneous Tissue and Fascia, Open Approach (ICD-10-PCS; principal; 2019-08-30)
DX: S41.111A Laceration without foreign body of right upper arm, initial encounter (principal); X99.1XXA Assault by knife, initial encounter; Y93.9 Activity, unspecified; Y92.009 Unspecified place in unspecified non-institutional (private) residence as the place of occurrence of the external cause; Z23 Encounter for immunization
CPT/HCPCS: 73060; 90471; 90714; 96372; 99284; 12002; J0690